=== PATIENT | male | born 1980 | race Hispanic/Latino ===

== ENCOUNTER 2021-02-19 20:44 | Emergency (ER) | payer BC ==
[2021-02-19] MEDS ORDERED: ACETAMINOPHEN 325 MG TAB PO ONE (22:00)
[2021-02-19] MEDS ORDERED: ONDANSETRON HCL 4 MG ORAL DISINTEGRATING TAB PO ONE (22:00)
[2021-02-19] MEDS ORDERED: ACETAMINOPHEN 325 MG TAB ONE (22:01)
[2021-02-19] MEDS ORDERED: ONDANSETRON HCL 4 MG ORAL DISINTEGRATING TAB ONE (22:02)
== END 2021-02-19 23:00 | disposition home or self-care (01) ==
LOC: ER 21:03
DX: U07.1 COVID-19 (principal); R50.9 Fever, unspecified; R05.9 Cough, unspecified
CPT/HCPCS: 99284; Q0162; U0002

== ENCOUNTER 2022-04-09 18:00 | Emergency (ER) | payer BC ==
[~2022-04-09] VITALS: Ht 165.1 cm; Wt 79.8 kg
[2022-04-09] MEDS ORDERED: ONDANSETRON HCL 4 MG ORAL DISINTEGRATING TAB PO ONE (18:30)
[2022-04-09] MEDS ORDERED: AMOXICILLIN/CLAVULANATE K 500 MG TAB PO SCH (18:45)
[2022-04-09] MEDS ORDERED: AMOXICILLIN/CLAVULANATE K 500 MG TAB PO ONE (18:45)
[2022-04-09] MEDS ORDERED: AMOXICILLIN/CLAVULANATE K 500 MG TAB ONE (18:50)
[2022-04-09] MEDS ORDERED: AUGMENTIN 500-1 EACH PO (19:09)
[2022-04-09] MEDS ORDERED: ZYRTEC-D TABLE1 EACH PO (19:09)
[2022-04-09] MEDS ORDERED: ONDANSETRON ODT4 MG PO (19:14)
== END 2022-04-09 19:15 | disposition home or self-care (01) ==
LOC: ER 18:10
DX: R50.9 Fever, unspecified (principal); H66.93 Otitis media, unspecified, bilateral; J02.9 Acute pharyngitis, unspecified; R05.9 Cough, unspecified; Z20.822 Contact with and (suspected) exposure to COVID-19
CPT/HCPCS: 0223U; 36415; 87400; 99282; Q0162